=== PATIENT | male | born 1970 | race Caucasian/White ===

== ENCOUNTER 2019-01-10 19:43 | Emergency (ER) | payer SELFPAY ==
[~2019-01-10] VITALS: Ht 172.7 cm; Wt 80.7 kg
[2019-01-10 20:11] VITALS: Ht 172.7 cm; Wt 80.7 kg
[2019-01-10 23:45] VITALS: BP 120/76
== END 2019-01-10 23:45 | disposition home or self-care (01) ==
LOC: ED 19:43
DX: S00.83XA Contusion of other part of head, initial encounter (principal); S06.9X1A Unspecified intracranial injury with loss of consciousness of 30 minutes or less, initial encounter; H11.31 Conjunctival hemorrhage, right eye; R04.0 Epistaxis; E11.9 Type 2 diabetes mellitus without complications; Y04.8XXA Assault by other bodily force, initial encounter; Y93.89 Activity, other specified; Y92.89 Other specified places as the place of occurrence of the external cause; Y99.8 Other external cause status